=== PATIENT | female | born 1985 | race Caucasian/White ===

== ENCOUNTER 2017-11-16 08:58 | Emergency (ER) | payer MEDICAID ==
[~2017-11-16] VITALS: Ht 154.9 cm; Wt 55.9 kg
[2017-11-16] MEDS ORDERED: IPRA4AER IH (09:06)
[2017-11-16] MEDS ORDERED: AMIT25TA9 PO (09:06)
[2017-11-16] MEDS ORDERED: LIDOCAINE HCL/PF 1% 2 ML VIAL IM ONE (11:00)
[2017-11-16] MEDS ORDERED: CefTRIAXone SODIUM 1 GM/VIAL IM ONE (11:00)
[2017-11-16] MEDS ORDERED: LIDOCAINE HCL 1% 10 ML VIAL INJ ONE (12:00)
[2017-11-16] MEDS ORDERED: POVIDONE-IODINE 10% 15 ML SOLUTION UD TP ONE (12:00)
[2017-11-16] MEDS ORDERED: HYDROCODONE/ACETAMINOPHEN 10-325 MG TABLET PO ONE (12:00)
[2017-11-16 13:17] VITALS: BP 122/81
== END 2017-11-16 13:29 | disposition home or self-care (01) ==
LOC: EMS 09:01
DX: L02.415 Cutaneous abscess of right lower limb (principal); L03.115 Cellulitis of right lower limb; L08.9 Local infection of the skin and subcutaneous tissue, unspecified; J45.909 Unspecified asthma, uncomplicated; G43.909 Migraine, unspecified, not intractable, without status migrainosus; F17.210 Nicotine dependence, cigarettes, uncomplicated
CPT/HCPCS: 10060; 96372; 99283; J0696; J3490 ×2